=== PATIENT | male | born 1945 | race African-American/Black ===

== ENCOUNTER → 2019-04-16 | Outpatient (CLI) | payer BC, MEDICARE ==
[~2019-04-16] MED LIST: IOHEXOL 240 MG/ML 50ML VIAL. PO ONE; IOHEXOL 300 MG/ML 100ML VIAL. IV ONE
--- NOTE | 2019-04-16 16:24 | RAD ---
PQRS Compliance statement: One or more of the following individualized dose reduction techniques were utilized for this examination: 1. Automated exposure control. 2. Adjustment of the mA and/or kV according to patient size. 3. Use of iterative reconstruction technique. Indication:Abdominal pain. TECHNIQUE: CT abdomen and pelvis with IV contrast with multiplanar reformats. COMPARISON: None FINDINGS: Heart is normal in size. No pericardial or pleural effusion. Clear lung bases. Few scattered too small to characterize low attenuating lesions are seen in the liver, the largest in segment 8 measuring 6 mm (series 2 image 16). Spleen, gallbladder, pancreas, adrenals within normal limits. Simple appearing cyst in the bilateral kidneys, the largest in the right inferior pole measuring 2.8 cm and in the left upper pole measuring 4.3 cm. No nephrolithiasis or hydronephrosis. No free pelvic fluid or ascites. The prostate and seminal vesicles show no large mass. No enlarged pelvic or retroperitoneal adenopathy. No bowel obstruction. Normal appendix. Urinary bladder demonstrates no radiopaque stones. No pneumoperitoneum. No suspicious bony lesion. IMPRESSION: Few too small to characterize low attenuating liver lesions most likely cysts or small hemangiomas in absence of malignancy. MRI abdomen with IV contrast can be obtained for confirmation. Electronically signed by: Prince Wan DO (04/16/2019 4:22 PM) [id number]
== END | disposition home or self-care (01) ==
LOC: CT 09:36
PROVIDERS: ATTEND Internal Medicine
DX: K76.89 Other specified diseases of liver (principal)
CPT/HCPCS: 74177; Q9966; Q9967